=== PATIENT | male | born 1970 | race Caucasian/White ===

== ENCOUNTER 2019-06-14 10:49 | Emergency (ER) | payer OTHER ==
[2019-06-14 10:54] VITALS: TEMP 97.5; BMI 33.5
[2019-06-14] MEDS ORDERED: ASPIRIN 81 MG CHEWABLE TABLETS PO ONE (12:03)
[2019-06-14] MEDS ORDERED: KETOROLAC TROMETHAMINE 30 MG/1 ML VIAL IVPUSH ONE (12:08)
[2019-06-14] MEDS ORDERED: ASPIRIN 81 MG CHEWABLE TABLETS ONE (12:08)
[2019-06-14] MEDS ORDERED: KETOROLAC TROMETHAMINE 30 MG/1 ML VIAL ONE (12:18)
--- NOTE | 2019-06-14 12:22 | PDOC ---
History of Present Illness - General Chief Complaint: Lightheaded Stated Complaint: BACK PAIN Time Seen by Provider: 06/14/19 11:49 History Source: Patient Exam Limitations: No Limitations - History of Present Illness Initial Comments: 06/14/19 12:24 49 y/o male with history of dyslipidemia presents to ED with sudden onset of left trapezius pain while walking. the patient states within seconds developed slight dizziness and sweating. Patient states recently started working out and has lost approximately 25 pounds in the past 3 months by changing his diet and unsure if the exercise because his symptoms. Patient denies smoking history, recent travel, recent illness, recent surgery, or other medical history. Patient states pain is worsened with deep breathing and movement describing as sharp and intermittent and otherwise dull while resting. Presenting Symptoms: Back Pain, Dizziness Timing/Duration: reports: constant Severity/Quality: reports: moderate, sharp, stabbing Location: reports: back (Left trapezius/scapula) Chest Pain Radiation: reports: no radiation Activities at Onset: reports: none Prior Chest Pain/Cardiac Workup: reports: No prior chest pain Modifying Factors: improves with: coughing, movement Nitro Today/Relief: Yes: no nitro taken today Aspirin Received prior to arrival (Core Measure): Yes: no aspirin today Associated Symptoms: Yes: Diaphoresis, Dizziness Past History - Travel Traveled outside of the country in the last 30 days: No Close contact w/someone who was outside of country & ill: No - Past Medical History Allergies/Adverse Reactions: Allergies Allergy/AdvReac Type Severity Reaction Status Date / Time No Known Allergies Allergy Verified 06/14/19 10:54 COPD: No Hypercholesterolemia: Yes - Psycho Social/Smoking Cessation Hx Smoking History: Never smoked Hx Alcohol Use: Yes (SOCIALLY) Drug/Substance Use Hx: No Patient Lives Alone: Yes Lives with/in: lives alone Review of Systems - Review of Systems Able to Perform ROS?: No Is the patient limited Hungarian proficient: No Constitutional: No: Symptoms Reported HEENTM: No: Symptoms Reported Respiratory: No: Symptoms reported Cardiac (ROS): Yes: Lightheadedness ABD/GI: No: Symptoms Reported : No: Symptoms Reported Musculoskeletal: No: Symptoms Reported Integumentary: No: Symptoms Reported Neurological: Yes: Dizziness Endocrine: No: Symptoms Reported Hematologic/Lymphatic: No: Symptoms Reported *Physical Exam - Vital Signs Last Vital Signs Temp Pulse Resp BP Pulse Ox 97.5 F L 75 14 138/79 97 06/14/19 10:51 06/14/19 10:51 06/14/19 10:51 06/14/19 10:51 06/14/19 10:51 - Physical Exam General Appearance: Yes: Nourished, Appropriately Dressed. No: Apparent Distress HEENT: positive: EOMI, RIN. negative: Pale Conjunctivae Neck: positive: Supple Respiratory/Chest: positive: Lungs Clear, Normal Breath Sounds. negative: Respiratory Distress, Accessory Muscle Use Cardiovascular: positive: Regular Rhythm, Regular Rate. negative: Murmur Gastrointestinal/Abdominal: positive: Soft. negative: Tenderness Musculoskeletal: positive: Other (Left trapezius) Extremity: positive: Normal Inspection Integumentary: positive: Normal Color, Warm, Moist Neurologic: positive: Motor Strength 5/5 (ambulatory) Heart Score/ECG Review - ECG Intrepretation Rhythm: Regular Rhythm (59, RBBB (pt states was told he has from his policy services representative)) ED Treatment Course - LABORATORY CBC & Chemistry Diagram: 06/14/19 12:12 06/14/19 13:25 - ADDITIONAL ORDERS Additional order review: Laboratory Results 06/14/19 06/14/19 06/14/19 13:25 12:12 12:12 PT with INR 12.80 INR 1.08 Sodium 138 Cancelled Potassium 4.0 Cancelled Chloride 103 Cancelled Carbon Dioxide 28 Cancelled Anion Gap 7 L Cancelled BUN 8.4 Cancelled Creatinine 0.9 Cancelled Est GFR (CKD-EPI)AfAm 115.83 Cancelled Est GFR (CKD-EPI)NonAf 99.94 Cancelled Random Glucose 143 H Cancelled Calcium 9.4 Cancelled Magnesium 2.0 Cancelled Total Bilirubin 0.9 Cancelled AST 19 Cancelled ALT 37 Cancelled Alkaline Phosphatase 46 Cancelled Creatine Kinase 100 Creatine Kinase Index CK-MB (CK-2) Troponin I < 0.02 Total Protein 7.2 Cancelled Albumin 4.7 Cancelled 06/14/19 12:12 PT with INR INR Sodium Potassium Chloride Carbon Dioxide Anion Gap BUN Creatinine Est GFR (CKD-EPI)AfAm Est GFR (CKD-EPI)NonAf Random Glucose Calcium Magnesium Total Bilirubin AST ALT Alkaline Phosphatase Creatine Kinase Cancelled Creatine Kinase Index Cancelled CK-MB (CK-2) Cancelled Troponin I Cancelled Total Protein Albumin 06/14/19 12:12 RBC 4.34 MCV 89.7 MCHC 35.4 RDW 14.1 MPV 10.6 Neutrophils % 71.5 Lymphocytes % 19.5 Monocytes % 8.0 Eosinophils % 0.2 Basophils % 0.8 - RADIOLOGY Radiology Studies Ordered: Category Date Time Status CHEST - PA [RAD] Stat Radiology 06/14/19 12:04 Taken - Medications Given in the ED: ED Medications Discontinued Medications Generic Name Dose Route Start Last Admin Trade Name Burton PRN Reason Stop Dose Admin Aspirin 162 mg 06/14/19 12:03 06/14/19 12:30 Asa - PO 06/14/19 12:04 Not Given ONCE ONE Sodium Chloride 1,000 mls @ 1,000 mls/hr 06/14/19 13:06 06/14/19 13:20 Normal Saline - IV 06/14/19 14:05 1,000 mls/hr ASDIR STA Administration Ketorolac Tromethamine 30 mg 06/14/19 12:08 06/14/19 12:25 Toradol Injection - IVPUSH 06/14/19 12:09 30 mg ONCE ONE Administration Medical Decision Making - Medical Decision Making 06/14/19 12:01 Chief complaint: Sudden onset of left trapezius pain while walking followed by dizziness and sweating. Patient denies history of cardiac disease but does state he was to of high cholesterol. Patient states pain is worsened with movement and deep breathing Exam: Reproducible left trapezius pain otherwise normal vital signs EKG shows right bundle branch block which patient states has had for the past 6 years as he has been told by his policy services representative Plan: Cardiac profile, EKG, Toradol and chest x-ray ordered 06/14/19 14:32 Laboratory Tests 06/14/19 06/14/19 06/14/19 12:12 12:12 13:25 WBC 8.0 Hgb 13.8 Hct 38.9 Absolute Neuts (auto) 5.7 PT with INR 12.80 INR 1.08 Sodium 138 Potassium 4.0 Chloride 103 Carbon Dioxide 28 Anion Gap 7 L BUN 8.4 Creatinine 0.9 Est GFR (CKD-EPI)AfAm 115.83 Est GFR (CKD-EPI)NonAf 99.94 Random Glucose 143 H Calcium 9.4 Magnesium 2.0 Total Bilirubin 0.9 AST 19 ALT 37 Alkaline Phosphatase 46 Creatine Kinase 100 Troponin I < 0.02 Total Protein 7.2 Albumin 4.7 Patient's initial CK resulted at 705 which I spoke to the lab stocking and box shop supervisor for since patient was given a liter of normal saline. Patient states was doing extensive workout yesterday did not drink much fluid, and then went out and had bourbon last night. Patient states symptoms have resolved with Toradol. Patient will be discharged home with recommendations to drink plenty of fluids and to take Tylenol. Discharge - Discharge Information Problems reviewed: Yes Clinical Impression/Diagnosis: Spasm of thoracic back muscle Condition: Improved Disposition: HOME - Follow up/Referral Referrals: Kaitlynn Escalante [Primary Care Provider] - - Patient Discharge Instructions Patient Printed Discharge Instructions: DI for Thoracic Back Pain Additional Instructions: Please drink at least 2 L of water today and after strenuous workout to promote filtration of toxins and hydration. Take Tylenol for discomfort - Post Discharge Activity
[2019-06-14 12:28] LABS: BASO % 0.8 % (0-2.0); EOS % 0.2 % (0-4.5); HEMATOCRIT 38.9 % (35.4-49); HEMOGLOBIN 13.8 GM/dL (11.7-16.9); LYMPH % 19.5 % (8-40); MCH 31.7 pg (25.7-33.7); MCHC 35.4 g/dl (32.0-35.9); MEAN CELL VOLUME 89.7 fl (80-96); MEAN PLT VOLUME 10.6 fl (7.5-11.1); NEUT % 71.5 % (42.8-82.8); PLATELET COUNT 292 K/MM3 (134-434); RBC 4.34 M/mm3 (4.00-5.60); RDW 14.1 % (11.9-15.9)
[2019-06-14 12:35] LABS: INR 1.08 (0.83-1.09); PROTHROMBIN TIME (PATIENT) 12.8 SEC (9.7-13.0)
[2019-06-14] MEDS ORDERED: SODIUM CHLORIDE 1,000 ML IV STA (13:06)
[2019-06-14 14:03] LABS: ALBUMIN 4.7 g/dl (3.4-5.0); ALK PHOS 46 U/L (45-117); ANION GAP 7 MMOL/L (8-16); BILIRUBIN,TOTAL 0.9 mg/dL (0.2-1); BLOOD UREA NITROGEN 8.4 mg/dL (7-18); CALCIUM 9.4 mg/dL (8.5-10.1); CHLORIDE 103 mmol/L (98-107); CO2 28 mmol/L (21-32); CREATININE 0.9 mg/dL (0.55-1.3); GLUCOSE,RANDOM 143 mg/dL (74-106); SGOT/AST 19 U/L (15-37); SGPT/ALT 37 U/L (13-61); SODIUM 138 mmol/L (136-145); TOT PROT 7.2 g/dl (6.4-8.2)
[2019-06-14 14:57] VITALS: BP 134/76; PULSE 76
--- NOTE | 2019-06-15 20:22 | EKG ---
Test Reason : Blood Pressure : / mmHG Vent. Rate : 059 BPM Atrial Rate : 059 BPM P-R Int : 172 ms QRS Dur : 154 ms QT Int : 468 ms P-R-T Axes : 037 003 010 degrees QTc Int : 463 ms SINUS BRADYCARDIA RIGHT BUNDLE BRANCH BLOCK ABNORMAL ECG NO PREVIOUS ECGS AVAILABLE Confirmed by MD CHRISTINE, DRE ([id number]) on 06/15/2019 8:22:34 PM Referred By: Confirmed By:DRE KING MD
== END 2019-06-14 15:00 | disposition home or self-care (01) ==
LOC: JER 10:49
PROC: 3E0333Z Introduction of Anti-inflammatory into Peripheral Vein, Percutaneous Approach (ICD-10-PCS; principal; 2019-06-14)
PROC: 3E0337Z Introduction of Electrolytic and Water Balance Substance into Peripheral Vein, Percutaneous Approach (ICD-10-PCS; 2019-06-14)
DX: M62.830 Muscle spasm of back (principal); X58.XXXA Exposure to other specified factors, initial encounter; Y93.89 Activity, other specified; Y92.89 Other specified places as the place of occurrence of the external cause; E78.5 Hyperlipidemia, unspecified
CPT/HCPCS: 36415; 71045-TC-FY; 80053; 82550; 83735; 84484; 85025; 85610; 93005; 93010; 96361; 96374; 99283-25; J7030